=== PATIENT | male | born 1995 | race African-American/Black ===

== ENCOUNTER 2017-11-16 21:58 | Emergency (ER) | payer MEDICAID, OTHER ==
[2017-11-17] MEDS ORDERED: SULFAMETHOXAZOLE/TRIMETHOPRIM 800-160 MG TABLET PO ONE (01:09)
[2017-11-17] MEDS ORDERED: CEPHALEXIN 500 MG CAPSULE PO ONE (01:10)
--- NOTE | 2017-11-17 01:12 | ER Document Report ---
ED General - General Chief Complaint: Abscess Stated Complaint: ABSCESS Time Seen by Provider: 11/16/17 23:12 Mode of Arrival: Ambulatory Information source: Patient Notes: Patient is a 21-year-old male who presents with chief complaint of possible abscess to his right axilla. Patient reports it began 3 days ago and has progressively gotten worse. Patient states he had a facial abscess once before that required draining but he denies any history of MRSA. TRAVEL OUTSIDE OF THE [place] IN LAST 30 DAYS: No - Related Data Allergies/Adverse Reactions: No Known Allergies Allergy (Unverified 11/16/17 21:59) Past Medical History - General Information source: Patient - Social History Smoking Status: Current Every Day Smoker Chew tobacco use (# tins/day): No Frequency of alcohol use: None Drug Abuse: None Family History: Reviewed & Not Pertinent Patient has suicidal ideation: No Patient has homicidal ideation: No - Medical History Medical History: Negative Renal/ Medical History: Denies: Hx Peritoneal Dialysis Surgical Hx: Negative Review of Systems - Review of Systems Skin: See HPI -: Yes All other systems reviewed and negative Physical Exam - Vital signs Vitals: Temp Pulse Resp BP Pulse Ox 99.7 F 92 18 136/78 H 98 11/16/17 22:14 11/16/17 22:14 11/16/17 22:14 11/16/17 22:14 11/16/17 22:14 - Notes Notes: PHYSICAL EXAMINATION: GENERAL: Well-appearing, well-nourished and in no acute distress. HEAD: Atraumatic, normocephalic. EYES: Pupils equal round extraocular movements intact, conjunctiva are normal. ENT: Nares patent NECK: Normal range of motion LUNGS: No respiratory distress Musculoskeletal: Normal range of motion NEUROLOGICAL: Normal speech, normal gait. PSYCH: Normal mood, normal affect. SKIN: Warm, Dry, normal turgor, no rashes or lesions noted. Medium sized area of erythema with induration and fluctuance to the right axilla, smaller area of erythema with induration and fluctuance located 2 cm from primary abscess. Course - Re-evaluation Re-evalutation: Incision and drainage performed, see procedure notes. Patient discharged on antibiotics and instructed to follow-up in 24-36 hours for packing removal. - Vital Signs Vital signs: Temp Pulse Resp BP Pulse Ox 99.1 F 85 16 124/71 100 11/17/17 01:17 11/17/17 01:17 11/17/17 01:17 11/17/17 01:17 11/17/17 01:17 Procedures - Incision and Drainage Right axilla Type: Multiple Anesthetic type: 1% Lidocaine Blade size: 11 I&D procedure: Betadine prep applied, Shurclens applied, Iodoform packing placed Incision Method: Incision made by scalpel Notes: Packing inserted to 2 separate locations of the right axilla. Discharge - Discharge Clinical Impression: Abscess Condition: Stable Disposition: HOME, SELF-CARE Additional Instructions: ABSCESS: You have an abscess (boil). This a pus-forming infection, usually due to staph. Some boils may be left to drain on their own, but most require lancing. From the time the tender lump first appears, it may be three or four days before the abscess is ready to jose. Local heat and rest help at this stage of treatment. An antibiotic may prevent spread of the infection. Once the abscess is opened, packing may be placed into it. This is done so pus is not sealed inside by premature closure of the cavity. The packing will be removed at your follow-up visit or you may be advised to remove it yourself at home. Sometimes this packing must be replaced a few times during healing. The wound will heal with surprisingly little scar. Depending on the size and location of an abscess, healing can take one to four weeks. You may shower and wash the area around the incision site two or three times a day. Antibiotics may be prescribed, but are usually not necessary after an abscess has been drained. If you develop fever, chills, worsening pain, or increasing swelling in the area, call the doctor or return immediately. POST INCISION AND DRAINAGE: You have had an incision made to allow drainage of an abscess. The incision must remain open so that pus and debris can drain from the wound. If the abscess cavity is large, packing is placed. This keeps the tissues from collapsing and trapping pus inside, while the body shrinks the cavity. The packing may need to be replaced every day or two. The physician will instruct you on the packing. Keep a bulky dressing over the area. Replace it if it becomes saturated with blood or pus. Do not disturb the packing (if present). You may shower and cleanse the area with gentle soap and warm water two or three times a day. Local warmth may be soothing, and may promote faster healing. Return if you develop high fever or chills, or if you note spreading redness, increasing swelling, or increasing tenderness. MRSA CELLULITIS: You have an infection of your skin and underlying soft tissues called cellulitis. This is due to bacteria, which can enter through any break in the skin, or even through an irritated hair follicle. Untreated, cellulitis will usually worsen and may form an abscess which requires draining. Although many bacterial organisms can cause cellulitis and abscess formations, the most likely bacteria is Methicillin-Resistant Staph Aureus, or MRSA for short. Antibiotics are required. Usually, warm packs or warm soaks, and elevation of the infected area are recommended. You should start getting better within 24 to 36 hours. Most infections respond quickly to the right medication. Follow-up care is important, however, to check for abscess (boil) formation, unsuspected foreign body, or resistant infection. If you develop fever, chills, or if the area of infection is becoming rapidly more swollen or painful, call the doctor at once. CEPHALEXIN: The antibiotic you've been prescribed is a member of the cephalosporin class. This type of antibiotic covers a wide variety of infections, including those of the skin, lungs, and urinary tract. It's useful for staph infections. This antibiotic is slightly similar to the penicillin family. In rare cases , a person who is allergic to penicillin will also be allergic to this medication. If you have had a severe allergic reaction to penicillin, and have not taken this antibiotic since that time, notify your doctor. Antibiotics which cover many germs ("broad spectrum" antibiotics) are more likely to cause diarrhea or "yeast" infections. Women prone to vaginal yeast problems may suffer an attack after taking this antibiotic. In infants, oral thrush (white spots "stuck" on the cheek) or yeast diaper rash may result. See your doctor if these problems occur. Call at once if you develop itching, hives , shortness of breath, or lightheadedness. TRIMETHOPRIM-SULFA: You have been given a prescription for trimethoprim-sulfa (TMS, Septra, Bactrim). This is a combination antibiotic of the sulfa class, often used for urinary tract infections, middle ear infections, bronchitis, shigella intestinal infection, and Pneumocystis pneumonia. TMS is usually well-tolerated. Occasional side effects include nausea and decreased appetite. Septra is not recommended for infants less than two months of age. Do not take this medication if you have experienced severe side effects or allergy to sulfa medicine. You should stop this medicine at once and contact your physician if you develop any rash, joint pain, shortness of breath, bruising, or jaundice ( yellow color in the skin), or if you develop any other new or unusual symptoms. FOLLOW-UP CARE: Most simple abscesses will not require a follow up visit. If you had packing placed in the abscess, remove it as instructed by the physician. If you have been referred to a physician for follow-up care, call the physicians office for an appointment as you were instructed or within the next two days. If you experience worsening or a significant change in your symptoms, return to the Emergency Department at any time for re-evaluation. Please return in 24-36 hours for packing removal. It is very important that this packing comes out. If the packing falls out prior to coming back and that is no problem. There are 2 areas that have a packing strip in them. Please keep a clean dressing on at all times, return to the emergency department sooner if he does experience worsening redness, swelling, streaking from the area or you develop a fever. Take antibiotics exactly as prescribed. Prescriptions: Cephalexin Monohydrate [Keflex 500 mg Capsule] 500 mg PO Q6H 5 Days #20 capsule Sulfamethoxazole/Trimethoprim [Bactrim Ds Tablet] 2 tab PO BID #28 tablet
[2017-11-17 01:21] VITALS: BP 124/71
== END 2017-11-17 01:24 | disposition home or self-care (01) ==
LOC: ER 21:58
PROC: 0H9BXZZ Drainage of Right Upper Arm Skin, External Approach (ICD-10-PCS; principal; 2017-11-16)
DX: L02.411 Cutaneous abscess of right axilla (principal); F17.200 Nicotine dependence, unspecified, uncomplicated
CPT/HCPCS: 99283; 10060; A6266

== ENCOUNTER 2017-11-19 19:40 | Emergency (ER) | payer OTHER ==
--- NOTE | 2017-11-19 20:56 | ER Document Report ---
HPI - HPI Patient complains to provider of: Wound recheck Onset: Last week Onset/Duration: Persistent Quality of pain: Achy Pain Level: 5 Context: Patient is here for a wound recheck and to have packing removed from abscess x2 to right axilla. Patient states that he has been compliant with taking his antibiotics. Patient denies any fever. Associated Symptoms: Other - Wound recheck Exacerbated by: Movement Relieved by: Denies Similar symptoms previously: Yes Recently seen / treated by doctor: Yes - ROS ROS below otherwise negative: Yes Systems Reviewed and Negative: Yes All other systems reviewed and negative - CONSTITUTIONAL Constitutional: DENIES: Fever, Chills - GASTROINTESTINAL Gastrointestinal: DENIES: Nausea - MUSCULOSKELETAL Musculoskeletal: REPORTS: Extremity pain - DERM Notes: Abscess to right axilla Past Medical History - General Information source: Patient - Social History Smoking Status: Current Every Day Smoker Smoking Education Provided: Yes Frequency of alcohol use: None Drug Abuse: None Occupation: [employer] Family History: Reviewed & Not Pertinent - Medical History Medical History: Negative Renal/ Medical History: Denies: Hx Peritoneal Dialysis Surgical Hx: Negative Vertical Provider Document - CONSTITUTIONAL Agree With Documented VS: Yes Exam Limitations: No Limitations General Appearance: WD/WN, No Apparent Distress - INFECTION CONTROL TRAVEL OUTSIDE OF THE [place] IN LAST 30 DAYS: No - HEENT HEENT: Atraumatic, Normocephalic - NECK Neck: Normal Inspection - RESPIRATORY Respiratory: No Respiratory Distress - CARDIOVASCULAR Pulses: Normal: Radial - MUSCULOSKELETAL/EXTREMETIES Musculoskeletal/Extremeties: MAEW - NEURO Level of Consciousness: Awake, Alert, Appropriate Motor/Sensory: No Motor Deficit - DERM Integumentary: Warm, Dry, Abscess - Abscess x2 to right axilla with packing in place Course - Re-evaluation Re-evalutation: 11/19/17 20:54 Packing removed from abscess to axilla x2. Patient with purulent drainage from abscess. Additional purulent drainage expressed from wound opening. No surrounding erythema, no concern for sepsis. Discussed wound management with patient and worsening signs or symptoms that patient should return immediately for. Patient encouraged to finish his antibiotics as previously prescribed - Vital Signs Vital signs: Temp Pulse Resp BP Pulse Ox 98.2 F 73 18 138/76 H 100 11/19/17 19:55 11/19/17 19:55 11/19/17 19:55 11/19/17 19:55 11/19/17 19:55 Discharge - Discharge Clinical Impression: Encounter for wound re-check, Axillary abscess Condition: Stable Disposition: HOME, SELF-CARE Instructions: Abscess (OM), Antibiotic Therapy ([facility]) Additional Instructions: Return immediately for any new or worsening symptoms Followup with your primary care provider, call tomorrow to make a followup appointment Forms: Smoking Cessation Education Referrals: [facility] [Provider Group] - Follow up as needed
[2017-11-19 22:39] VITALS: BP 122/78
== END 2017-11-19 22:05 | disposition home or self-care (01) ==
LOC: ER 19:40
DX: Z48.01 Encounter for change or removal of surgical wound dressing (principal); L02.411 Cutaneous abscess of right axilla; F17.200 Nicotine dependence, unspecified, uncomplicated
CPT/HCPCS: 99282

== ENCOUNTER 2017-12-24 02:19 | Emergency (ER) | payer SELFPAY ==
[2017-12-24 02:24] VITALS: BP 140/83
[2017-12-24] MEDS ORDERED: LIDOCAINE 1%/EPINEPHRINE INJ 20 ML VIAL INJ ONE (02:56)
[2017-12-24] MEDS ORDERED: DOXYCYCLINE HYCLATE 100 MG TABLET PO ONE (02:56)
--- NOTE | 2017-12-24 02:59 | ER Document Report ---
ED General - General Chief Complaint: Abscess Stated Complaint: SKIN ISSUE Time Seen by Provider: 12/24/17 02:36 Notes: Patient is a 22-year-old male presents with complaint of an abscess in along the right mandible. Appears to be some cutaneous abscess. Patient does shave over this area. This been there for a few days. Patient's only other complaint is recurring lymph node in the left neck. This over the anterior cervical chain. He says it comes and goes and has been doing that for a year. Says is not very painful. He says he is just noticed that it is popped up again. No sore throat. No other areas of lymphadenopathy that he has noticed. TRAVEL OUTSIDE OF THE [place] IN LAST 30 DAYS: No - Related Data Allergies/Adverse Reactions: No Known Allergies Allergy (Verified 11/19/17 19:44) Past Medical History - Social History Smoking Status: Unknown if Ever Smoked Frequency of alcohol use: None Drug Abuse: None Family History: Reviewed & Not Pertinent Renal/ Medical History: Denies: Hx Peritoneal Dialysis Review of Systems - Review of Systems Notes: My Normal Review Basic REVIEW OF SYSTEMS: CONSTITUTIONAL : Denies fever, chills, or sweats. Denies recent illness. EENT: Denies eye, ear, throat, or mouth pain or symptoms. Denies nasal or sinus congestion. RESPIRATORY: Denies cough, cold, or chest congestion. Denies shortness of breath, difficulty breathing, or wheezing. SKIN: Abscess of the left face. NEUROLOGICAL: Denies altered mental status or loss of consciousness. ALL OTHER SYSTEMS REVIEWED AND NEGATIVE. Physical Exam - Vital signs Vitals: Temp Pulse Resp BP Pulse Ox 98.5 F 86 16 140/83 H 97 12/24/17 02:20 12/24/17 02:20 12/24/17 02:20 12/24/17 02:20 12/24/17 02:20 - Notes Notes: General Appearance: Well nourished, alert, cooperative, no acute distress, no obvious discomfort. Well-appearing. Vitals: reviewed, See vital signs table. Head: 3 similar abscess that is well circumcised and subcutaneous along the right jawline. No swelling below the jawline. Eyes: PERRL, EOMI, Conjuctiva clear Mouth: No decreasd moisture Neck: Supple, no neck tenderness, No thyromegaly. Enlarged lymph node over the left anterior chain of the neck. No surrounding redness or swelling. No further lymphadenopathy in the neck. No lymph no adenopathy over the clavicular area. Neuro: speech clear, oriented x 3, normal affect, responds appropriately to questions. Course - Re-evaluation Re-evalutation: 12/24/17 04:10 Small abscess was incised and drained. Initially purulent drainage was expressed but then patient also has a sebaceous drainage as well suggesting that this was a sebaceous cyst that became infected. Patient placed on doxycycline. Patient to return to ER if he has any recurrent swelling, spreading redness, or fevers. Patient agrees with plan and will be discharged home. Dictation of this chart was performed using voice recognition software; therefore, there may be some unintended grammatical errors. - Vital Signs Vital signs: Temp Pulse Resp BP Pulse Ox 98.5 F 86 16 140/83 H 97 12/24/17 02:20 12/24/17 02:20 12/24/17 02:20 12/24/17 02:20 12/24/17 02:20 Procedures - Incision and Drainage right jaw Type: Simple Anesthetic type: 1% Lidocaine w/epi mL's of anesthetic: 1 Blade size: 11 I&D procedure: Shurclens applied Incision Method: Incision made by scalpel Amount/type of drainage: 2mls of purulent drainainge in conjunction with some sebacious drainage. Discharge - Discharge Clinical Impression: Abscess Condition: Good Disposition: HOME, SELF-CARE Additional Instructions: ABSCESS: You have an abscess (boil). This a pus-forming infection, usually due to staph. Some boils may be left to drain on their own, but most require lancing. From the time the tender lump first appears, it may be three or four days before the abscess is ready to jose. Local heat and rest help at this stage of treatment. An antibiotic may prevent spread of the infection. Once the abscess is opened, packing may be placed into it. This is done so pus is not sealed inside by premature closure of the cavity. The packing will be removed at your follow-up visit or you may be advised to remove it yourself at home. Sometimes this packing must be replaced a few times during healing. The wound will heal with surprisingly little scar. Depending on the size and location of an abscess, healing can take one to four weeks. You may shower and wash the area around the incision site two or three times a day. Antibiotics may be prescribed, but are usually not necessary after an abscess has been drained. If you develop fever, chills, worsening pain, or increasing swelling in the area, call the doctor or return immediately. POST INCISION AND DRAINAGE: You have had an incision made to allow drainage of an abscess. The incision must remain open so that pus and debris can drain from the wound. If the abscess cavity is large, packing is placed. This keeps the tissues from collapsing and trapping pus inside, while the body shrinks the cavity. The packing may need to be replaced every day or two. The physician will instruct you on the packing. Keep a bulky dressing over the area. Replace it if it becomes saturated with blood or pus. Do not disturb the packing (if present). You may shower and cleanse the area with gentle soap and warm water two or three times a day. Local warmth may be soothing, and may promote faster healing. Return if you develop high fever or chills, or if you note spreading redness, increasing swelling, or increasing tenderness. DOXYCYCLINE: Doxycycline (Vibramycin, Doryx) is an antibiotic of the tetracycline family. This type of drug is useful for infections of the respiratory tract and genital tract, and is sometimes used for intestinal infections. Unlike most tetracyclines, doxycycline can be taken with food. It is longer acting, and (usually) less prone to side effects than regular tetracycline. Tetracycline antibiotics can stain immature teeth and SHOULD NOT BE TAKEN BY CHILDREN, NURSING MOTHERS, OR WOMEN. Tetracyclines can make you more prone to sunburn. Abdominal cramping, nausea, and diarrhea are occasional side effects. Women may experience vaginal yeast infections. Call the doctor at once if you develop hives, itching, shortness of breath , or lightheadedness. FOLLOW-UP CARE: Most simple abscesses will not require a follow up visit. If you had packing placed in the abscess, remove it as instructed by the physician. If you have been referred to a physician for follow-up care, call the physicians office for an appointment as you were instructed or within the next two days. If you experience worsening or a significant change in your symptoms, return to the Emergency Department at any time for re-evaluation. Please return to the ER if you have recurrence of swelling, fevers, or spreading redness. Doxycycline will make your skin more sensitive to the sun so please make sure you keep your skin covered or wear sunscreen whenever out in the sun. Prescriptions: Doxycycline Hyclate 100 mg PO BID #10 capsule
== END 2017-12-24 04:15 | disposition home or self-care (01) ==
LOC: ER 02:19
DX: L02.01 Cutaneous abscess of face (principal)
CPT/HCPCS: 99283; 10060; J3490